=== PATIENT | female | born 1950 | race Caucasian/White ===

== ENCOUNTER 2018-02-20 07:43 | Day surgery (SDC) | payer OTHER, BC ==
[2018-02-13 14:42] VITALS: BMI 19.0
[2018-02-20] MEDS ORDERED: PROPOFOL 20 ML ONE ×3 (07:49→09:42)
[2018-02-20] MEDS ORDERED: LIDOCAINE HCL/PF 2% SDV 5ML VIAL ONE (07:50)
[2018-02-20 10:05] VITALS: TEMP 97.5
[2018-02-20 10:39] VITALS: BP 118/58; PULSE 75
--- NOTE | 2018-02-21 16:42 | PATH ---
Surgical Pathology Report Patient Name: SERGIO NI [facility]. Rec. #: [id number] /Age/Gender: 1950 (Age: 67) / F Account: [id number] Location: [facility]-ENDOSCOPY Taken: 02/20/2018 Received: 02/20/2018 Reported: 02/21/2018 Physicians: Liam Barry M.D. Specimen(s) Received RIGHT COLON Clinical History Family history of polyps Postoperative diagnosis: Polyp Final Diagnosis COLON, RIGHT, BIOPSY: SESSILE SERRATED POLYP. Electronically Signed Nannette Moreland M.D. Gross Description Received in formalin, labeled "right colon" are 3 menezes, irregular portions of soft tissue ranging from 0.3-1.0 cm. in greatest dimension. The specimens are submitted in toto in one cassette. 02/20/201802/20/2018
== END 2018-02-20 10:50 | disposition home or self-care (01) ==
LOC: FASU-ENDO 07:43
PROVIDERS: ATTEND Internal Medicine Gastroenterology
PROC: 0DBK8ZX Excision of Ascending Colon, Via Natural or Artificial Opening Endoscopic, Diagnostic (ICD-10-PCS; principal; 2018-02-20 09:30)
DX: Z12.11 Encounter for screening for malignant neoplasm of colon (principal); Z83.71 Family history of colonic polyps; D12.2 Benign neoplasm of ascending colon
CPT/HCPCS: 88305-TC